=== PATIENT | female | born 1990 | race Caucasian/White ===

== ENCOUNTER → 2021-06-26 | Outpatient (REF) | payer OTHER | LOC: M PLALAB 07:57 | PROVIDERS: ATTEND Specialist | DX: Z34.81 Encounter for supervision of other normal pregnancy, first trimester (principal); Z36.89 Encounter for other specified antenatal screening; Z53.9 Procedure and treatment not carried out, unspecified reason ==

== ENCOUNTER → 2021-06-26 | Outpatient (CLI) | payer BC ==
[2021-06-26 13:14] LABS: HEMATOCRIT 40.6 % (36.0-47.0); HEMOGLOBIN 13.8 g/dl (12.0-15.5); MEAN CORPUSCULAR HEMOGLOBIN 29.4 pg (27.0-33.0); MEAN CORPUSCULAR VOLUME 86.4 fl (80.0-96.0); PLATELET COUNT, AUTOMATED 338 10^3/uL (150-450); WHITE BLOOD COUNT 10.8 10^3/uL (4.0-10.0)
[2021-06-26 14:36] LABS: HEPATITIS C VIRUS ABY INDEX < 0.0 INDEX (<0.8); HIV 1&2 SCREEN CENTAUR NEGATIVE (NEGATIVE)
[2021-06-26 15:26] LABS: GC DNA AMPLIFICATION NEGATIVE (NEGATIVE)
== END ==
LOC: M PLALAB 09:24
PROVIDERS: ATTEND Specialist
DX: Z34.81 Encounter for supervision of other normal pregnancy, first trimester (principal); Z36.89 Encounter for other specified antenatal screening

== ENCOUNTER → 2021-08-07 | Outpatient (CLI) | payer BC | LOC: M WHC 08:59 | PROVIDERS: ATTEND Specialist | DX: O32.1XX0 Maternal care for breech presentation, not applicable or unspecified (principal); Z3A.20 20 weeks gestation of pregnancy; Z36.89 Encounter for other specified antenatal screening ==

== ENCOUNTER → 2021-09-06 | Outpatient (CLI) | payer BC | LOC: M WHC 11:50 | PROVIDERS: ATTEND Specialist | DX: Z34.82 Encounter for supervision of other normal pregnancy, second trimester (principal); Z36.2 Encounter for other antenatal screening follow-up; Z3A.24 24 weeks gestation of pregnancy ==

== ENCOUNTER → 2021-10-01 | Outpatient (CLI) | payer BC ==
[2021-10-01 15:28] LABS: HEMATOCRIT 39.6 % (36.0-47.0); HEMOGLOBIN 13.1 g/dl (12.0-15.5); MEAN CORPUSCULAR HEMOGLOBIN 28.5 pg (27.0-33.0); MEAN CORPUSCULAR HGB CONC 33.1 g/dl (32.0-36.5); MEAN CORPUSCULAR VOLUME 86.3 fl (80.0-96.0); PLATELET COUNT, AUTOMATED 299 10^3/uL (150-450); RED BLOOD COUNT 4.59 10^6/uL (4.00-5.40); WHITE BLOOD COUNT 10.3 10^3/uL (4.0-10.0)
[2021-10-01 17:16] LABS: GC DNA AMPLIFICATION NEGATIVE (NEGATIVE)
== END ==
LOC: M PLALAB 12:49
PROVIDERS: ATTEND Specialist
DX: Z34.82 Encounter for supervision of other normal pregnancy, second trimester (principal); Z36.89 Encounter for other specified antenatal screening

== ENCOUNTER → 2021-10-19 | Outpatient (CLI) | payer BC | LOC: M LAB 07:38 | PROVIDERS: ATTEND Advanced Practice Midwife | DX: O99.810 Abnormal glucose complicating pregnancy (principal); Z3A.00 Weeks of gestation of pregnancy not specified ==

== ENCOUNTER → 2022-09-16 | Outpatient (CLI) | payer BC ==
[~2022-09-16] MED LIST: COLA100C5 PO; IBUP-1022 PO; NOXI1TAB PO; OXYC1TAB23 PO; PRENTAB9 PO; TUMS500C PO; UNIS50CA PO
[2022-09-16 15:22] LABS: HEMATOCRIT 42.3 % (36.0-47.0); HEMOGLOBIN 14.2 g/dl (12.0-15.5); MEAN CORPUSCULAR HEMOGLOBIN 28.7 pg (27.0-33.0); MEAN CORPUSCULAR HGB CONC 33.6 g/dl (32.0-36.5); MEAN CORPUSCULAR VOLUME 85.6 fl (80.0-96.0); PLATELET COUNT, AUTOMATED 355 10^3/uL (150-450); RED BLOOD COUNT 4.94 10^6/uL (4.00-5.40)
[2022-09-16 17:56] LABS: GC DNA AMPLIFICATION NEGATIVE (NEGATIVE)
[2022-09-16 20:48] LABS: HEPATITIS C VIRUS ABY INDEX < 0.0 INDEX (<0.8)
[2022-09-16 20:50] LABS: HIV 1&2 SCREEN CENTAUR NEGATIVE (NEGATIVE)
== END ==
LOC: M PLALAB 14:19
PROVIDERS: ATTEND Advanced Practice Midwife
DX: Z34.91 Encounter for supervision of normal pregnancy, unspecified, first trimester (principal)

== ENCOUNTER → 2022-10-15 | Outpatient (CLI) | payer BC | LOC: M PLALAB 14:06 | PROVIDERS: ATTEND Obstetrics & Gynecology | DX: O26.892 Other specified pregnancy related conditions, second trimester (principal); R82.90 Unspecified abnormal findings in urine; Z3A.00 Weeks of gestation of pregnancy not specified ==